=== PATIENT | female | born 1990 | race Hispanic/Latino ===

== ENCOUNTER 2020-10-15 18:43 | Emergency (ER) | payer OTHER ==
[2020-10-15 21:33] LABS: BUN Blood Urea Nitrogen 17 mg/dL (7-18); Bicarbonate 26 mmol/L (21-32); Glucose Level 90 mg/dL (74-106); Potassium 3.6 mmol/L (3.5-5.1); Sodium Level 140 mmol/L (136-145)
[2020-10-15 21:36] LABS: Absolute Lymphocytes (CBC) 1.9 K/uL (0.7-4.9); Hematocrit 36.1 % (36.0-45.0); Lymphocytes % 32.9 % (15.3-44.8); MPV 10.7 fL (7.6-11.3); RBC Red Blood Cell Count 3.94 M/uL (3.86-4.86)
--- NOTE | 2020-10-15 22:19 | EDPHYS ---
Physician Documentation [facility] Name: Harper Trevizo Age: 30 yrs Sex: Female : 1990 Arrival Date: 10/15/2020 Time: 18:44 Bed 13 Private MD: [facility] ED Physician Fernando Cerda HPI: 10/15 20:46 This 30 yrs old Female presents to ER via Ambulatory with complaints of Chest pkl Pressure. 20:46 The patient or guardian reports chest pain that is located primarily in the anterior pkl chest wall, bilaterally. The pain does not radiate. Associated signs and symptoms: The patient has no apparent associated signs or symptoms. The chest pain is described as a pressure. The patient has not experienced similar symptoms in the past. 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 - Social history:: Smoking status: Patient denies any tobacco usage or history of. ROS: 20:46 Eyes: Negative for injury, pain, redness, and discharge, ENT: Negative for injury, pkl pain, and discharge, Neck: Negative for injury, pain, and swelling. 20:46 Cardiovascular: Positive for chest pain. 20:46 Respiratory: Negative for cough, shortness of breath. 20:46 Abdomen/GI: Negative for abdominal pain, nausea, vomiting, and diarrhea. 20:46 Back: Negative for acute changes. 20:46 : Negative for urinary symptoms. 20:46 MS/extremity: Negative for acute changes. 20:46 Skin: Negative for rash. 20:46 Neuro: Negative for altered mental status. Exam: 20:46 Head/Face: Normocephalic, atraumatic. Eyes: Pupils equal round and reactive to light, pkl extra-ocular motions intact. Lids and lashes normal. Conjunctiva and sclera are non-icteric and not injected. Cornea within normal limits. Periorbital areas with no swelling, redness, or edema. ENT: Nares patent. No nasal discharge, no septal abnormalities noted. Tympanic membranes are normal and external auditory canals are clear. Oropharynx with no redness, swelling, or masses, exudates, or evidence of obstruction, uvula midline. Mucous membranes moist. Neck: Trachea midline, no thyromegaly or masses palpated, and no cervical lymphadenopathy. Supple, full range of motion without nuchal rigidity, or vertebral point tenderness. No Meningismus. Chest/axilla: Normal chest wall appearance and motion. Nontender with no deformity. No lesions are appreciated. Cardiovascular: Regular rate and rhythm with a normal S1 and S2. No gallops, murmurs, or rubs. Normal PMI, no JVD. No pulse deficits. Respiratory: Lungs have equal breath sounds bilaterally, clear to auscultation and percussion. No rales, rhonchi or wheezes noted. No increased work of breathing, no retractions or nasal flaring. Abdomen/GI: Soft, non-tender, with normal bowel sounds. No distension or tympany. No guarding or rebound. No evidence of tenderness throughout. Back: No spinal tenderness. No costovertebral tenderness. Full range of motion. Skin: Warm, dry with normal turgor. Normal color with no rashes, no lesions, and no evidence of cellulitis. MS/ Extremity: Pulses equal, no cyanosis. Neurovascular intact. Full, normal range of motion. Neuro: Awake and alert, GCS 15, oriented to person, place, time, and situation. Cranial nerves II-XII grossly intact. Motor strength 5/5 in all extremities. Sensory grossly intact. Cerebellar exam normal. Normal gait. Vital Signs: 20:21 BP 114 / 73; Pulse 75; Resp 19; Temp 98; Pulse Ox 100% ; rr5 20:21 Weight 54.43 kg; Height 5 ft. 1 in. (154.94 cm); Pain 4/10; rr5 21:30 BP 108 / 70; Pulse 79; Resp 17; Pulse Ox 98% ; rr5 22:30 BP 110 / 75; Pulse 70; Resp 16; Pulse Ox 99% ; rr5 20:21 Body Mass Index 22.67 (54.43 kg, 154.94 cm) rr5 MDM: 20:28 Patient medically screened. pkl 22:17 Data reviewed: vital signs, nurses notes, lab test result(s), EKG, radiologic studies, pkl plain films. 22:19 ED course: Discussed lab EKG and CXR results with patient. Advised to follow up with pkl PCP in 2 to 3 days. Patient understood instructions. 01/12 20:37 Order name: CBC with Diff; Complete Time: 22:16 pkl 10/15 20:37 Order name: Chem 7; Complete Time: 21:33 pkl 10/15 20:37 Order name: D-Dimer; Complete Time: 22:16 pkl 10/15 20:37 Order name: EKG; Complete Time: 20:38 pkl 10/15 20:37 Order name: XRAY CXR (1 view) pkl Administered Medications: No medications were administered Disposition: 10/15/20 22:18 Discharged to Home. Impression: Chest pain. - Condition is Stable. - Medication Reconciliation Form, Thank You Letter, Antibiotic Education, Prescription Opioid Use form. - Follow up: Juliano Garcia DO; When: 2 - 3 days; Reason: Re-evaluation by your physician. - Problem is new. - Symptoms have improved. Signatures: Dispatcher [employer] EDJuan Antonio Pappas RN RN sg Lam, Pin, MD MD pkLoki Santos RN RN rr5 Corrections: (The following items were deleted from the chart) 22:34 22:18 10/15/2020 22:18 Discharged to Home. Impression: Chest pain. Condition is Stable. rr5 Forms are Medication Reconciliation Form, Thank You Letter, Antibiotic Education, Prescription Opioid Use. Follow up: Juliano Garcia; When: 2 - 3 days; Reason: Re-evaluation by your physician. Problem is new. Symptoms have improved. pkl
--- NOTE | 2020-10-15 22:19 | ER ---
Nurse's Notes [facility] Name: Harper Trevizo Age: 30 yrs Sex: Female : 1990 Arrival Date: 10/15/2020 Time: 18:44 Bed 13 Private MD: Juliano Garcia Diagnosis: Chest pain Presentation: 10/15 20:21 Coronavirus screen: At this time, the client does not indicate any symptoms associated sg with coronavirus-19. Ebola Screen: Patient negative for fever greater than or equal to 101.5 degrees Fahrenheit, and additional compatible Ebola Virus Disease symptoms Patient denies exposure to infectious person. Patient denies travel to an Ebola-affected area in the 21 days before illness onset. No symptoms or risks identified at this time. Initial Sepsis Screen: Does the patient meet any 2 criteria? No. Patient's initial sepsis screen is negative. Does the patient have a suspected source of infection? No. Patient's initial sepsis screen is negative. Risk Assessment: Do you want to hurt yourself or someone else? Patient reports no desire to harm self or others. Onset of symptoms was October 15, 2020. Care prior to arrival: None. Transition of care: patient was not received from another setting of care. 20:21 Acuity: WIL 3 sg 20:21 Method Of Arrival: Ambulatory sg 20:21 Chief complaint: Patient states: I am having chest pressure not radiating started 4 rr5 days ago. Triage Assessment: 20:30 General: Appears in no apparent distress. comfortable, Behavior is calm, cooperative, rr5 appropriate for age. 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 - Social history:: Smoking status: Patient denies any tobacco usage or history of. Screenin:20 Abuse screen: Denies threats or abuse. Denies injuries from another. Nutritional rr5 screening: No deficits noted. Tuberculosis screening: No symptoms or risk factors identified. Fall Risk IV access (20 points). Total Gonzalez Fall Scale indicates No Risk (0-24 pts). Assessment: 20:30 General: Appears in no apparent distress. comfortable, Behavior is calm, cooperative, rr5 appropriate for age. 20:30 Pain: Complains of pain in chest Pain does not radiate. Pain currently is 5 out of 10 rr5 on a pain scale. Quality of pain is described as pressure, Pain began gradually, Is intermittent. Neuro: Level of Consciousness is awake, alert, obeys commands, Oriented to person, place, time, situation. Cardiovascular: Reports chest pain, Capillary refill < 3 seconds Patient's skin is warm and dry. Respiratory: Airway is patent Respiratory effort is even, unlabored, Respiratory pattern is regular, symmetrical. GI: No signs and/or symptoms were reported involving the gastrointestinal system. : No signs and/or symptoms were reported regarding the genitourinary system. EENT: No signs and/or symptoms were reported regarding the EENT system. Derm: Skin is intact, is healthy with good turgor, Skin temperature is warm. Musculoskeletal: Circulation, motion, and sensation intact. Capillary refill < 3 seconds. Vital Signs: 20:21 BP 114 / 73; Pulse 75; Resp 19; Temp 98; Pulse Ox 100% ; rr5 20:21 Weight 54.43 kg; Height 5 ft. 1 in. (154.94 cm); Pain 4/10; rr5 21:30 BP 108 / 70; Pulse 79; Resp 17; Pulse Ox 98% ; rr5 22:30 BP 110 / 75; Pulse 70; Resp 16; Pulse Ox 99% ; rr5 20:21 Body Mass Index 22.67 (54.43 kg, 154.94 cm) rr5 ED Course: 18:44 Patient arrived in ED. as 18:44 Juliano Garcia DO is Private Physician. as 20:21 Arm band placed on. sg 20:22 Triage completed. sg 20:22 Loki Almeida, RN is Primary Nurse. rr5 20:28 Fernando Cerda MD is Attending Physician. pkl 21:00 Patient has correct armband on for positive identification. 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 Pulse rr5 ox on. NIBP on. 21:10 No provider procedures requiring assistance completed. Inserted saline lock: 20 gauge rr5 in right forearm, using aseptic technique. Blood collected. Patient maintains SpO2 saturation greater than 95% on room air. 21:30 EKG done, by ED staff, reviewed by Fernando Cerda MD. rr5 21:33 XRAY CXR (1 view) In Process Unspecified. EDMS 22:18 Garcia, Juliano, DO is Referral Physician. pkl 22:30 IV discontinued, intact, bleeding controlled, No redness/swelling at site. Pressure rr5 dressing applied. Administered Medications: No medications were administered Outcome: 22:18 Discharge ordered by . pkl 22:30 Discharged to home ambulatory. rr5 22:30 Condition: stable 22:30 Discharge instructions given to patient, Instructed on discharge instructions, follow up and referral plans. Demonstrated understanding of instructions, follow-up care. 22:34 Patient left the ED. rr5 Signatures: Dispatcher [employer] EDDC Juan Antonio Alanis, RN RN Fernando Cooley MD MD pkl Martinez, Amelia as Roque, Raymond, RN RN rr5
[2020-10-15 22:38] VITALS: BP 114/73; TEMP 98; O2SAT 100
[2020-10-16] MEDS ORDERED: D50W 25 GM/50 ML SYRINGE IV ONE (04:08)
[2020-10-16] MEDS ORDERED: D50W 50 ML IV ONE (05:42)
--- NOTE | 2020-10-16 08:39 | RAD REPORT ---
EXAM DESCRIPTION: RAD - Chest Single View - 10/15/2020 9:33 pm CLINICAL HISTORY: CHEST PAIN Chest pain. COMPARISON: No comparisons FINDINGS: Portable technique limits examination quality. The lungs are grossly clear. The heart is normal in size. No displaced fractures. IMPRESSION: No acute intrathoracic process suspected.
--- NOTE | 2020-10-16 16:10 | EKG ---
Test Date: 2020-10-15 Test Time: 21:40:01 Superintendent Stations: RR MEASUREMENT RESULTS: Intervals: Rate: 70 SD: 138 QRSD: 80 QT: 388 QTc: 419 [place]: P: 49 SD: 138 QRS: 86 T: 54 INTERPRETIVE STATEMENTS: Normal sinus rhythm Normal ECG Compared to ECG 10/15/2020 21:39:34 No significant changes Electronically Signed On 10-16-20 16:08:40 FAMILY WELFARE SOCIAL WORK PROFESSOR by Alec Maza
== END 2020-10-15 22:34 | disposition home or self-care (01) ==
LOC: ER 18:43
DX: R07.89 Other chest pain (principal)
CPT/HCPCS: 36415; 71045; 80048; 85025; 85379; 93005; 99285

== ENCOUNTER 2021-03-18 10:04 | Emergency (ER) | payer OTHER ==
[2021-03-18 12:46] LABS: Absolute Lymphocytes (CBC) 1.1 K/uL (0.7-4.9); Basophils % 1.1 % (0-1.3); Hematocrit 35.2 % (36.0-45.0); Lymphocytes % 24.8 % (15.3-44.8); MPV 10.5 fL (7.6-11.3); RBC Red Blood Cell Count 3.74 M/uL (3.86-4.86)
[2021-03-18 12:47] LABS: Urine Blood Trace-intact (Negative); Urine Glucose Negative (Negative); Urine Protein 1+ (Negative); Urine Specific Gravity >=1.030 (1.005-1.030)
[2021-03-18 12:51] LABS: Urine Specific Gravity/Preg >1.030 (1.005-1.030)
[2021-03-18 12:54] LABS: Barbiturates NEGATIVE (NEGATIVE); Benzodiazepines NEGATIVE (NEGATIVE); Cocaine NEGATIVE (NEGATIVE); METHAMPHETAM NEGATIVE (NEGATIVE); Methadone NEGATIVE (NEGATIVE); Opiates NEGATIVE (NEGATIVE); Phencyclidine NEGATIVE (NEGATIVE); THC Cannibis NEGATIVE (NEGATIVE)
[2021-03-18 12:56] LABS: Protime INR 1.1
[2021-03-18 13:06] LABS: ALT/SGPT 18 U/L (12-78); AST/SGOT 17 U/L (15-37); Albumin 4.4 g/dL (3.4-5.0); Alkaline Phosphatase 55 U/L (45-117); BUN Blood Urea Nitrogen 12 mg/dL (7-18); Bicarbonate 25 mmol/L (21-32); Bilirubin Direct 0.2 mg/dL (0-0.2); Bilirubin Total 0.6 mg/dL (0.2-1.0); Creatine Phosphokinase 90 U/L (26-192); Glucose Level 82 mg/dL (74-106); NT PRO-BNP 106 pg/mL (<125); Potassium 3.4 mmol/L (3.5-5.1); Protein, Total 7.7 g/dL (6.4-8.2); Sodium Level 143 mmol/L (136-145); Troponin (Emerg Dept Use Only) < 0.02 ng/mL (0.0-0.045)
[2021-03-18] MEDS ORDERED: NA CHLORIDE 0.9% 1,000 ML ONE (13:29)
--- NOTE | 2021-03-18 15:07 | ER ---
Nurse's Notes [facility] Name: Harper Trevizo Age: 30 yrs Sex: Female : 1990 Arrival Date: 03/18/2021 Time: 10:06 Bed 23 Private MD: Diagnosis: Syncope and collapse;Palpitations Presentation: 03/18 10:15 Chief complaint: Patient states: "Yesterday I went for a run then took my kids and dog jd3 to the park and when I got home I felt my heart racing and I got nauseous. last week I have been working out and I forgot to take my pre-workout so I took some of my friends weight loss energy pills and I don't think it was that, but I just want to see what is going wrong.". Coronavirus screen: At this time, the client does not indicate any symptoms associated with coronavirus-19. Ebola Screen: Patient negative for fever greater than or equal to 101.5 degrees Fahrenheit, and additional compatible Ebola Virus Disease symptoms. Initial Sepsis Screen: Does the patient meet any 2 criteria? No. Patient's initial sepsis screen is negative. Does the patient have a suspected source of infection? No. Patient's initial sepsis screen is negative. Risk Assessment: Do you want to hurt yourself or someone else? Patient reports no desire to harm self or others. Onset of symptoms was March 17, 2021. 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 - Social history:: Smoking status: Patient denies any tobacco usage or history of. Screenin:06 Abuse screen: Denies threats or abuse. Nutritional screening: No deficits noted. kg Tuberculosis screening: No symptoms or risk factors identified. Fall Risk None identified. Assessment: 12:05 Reassessment: provider at bedside at this time. kg 12:15 General: Appears in no apparent distress. comfortable, Behavior is calm, cooperative, kg appropriate for age, quiet. Pain: Denies pain. Neuro: No deficits noted. Level of Consciousness is awake, alert, obeys commands, Oriented to person, place, time, situation, Appropriate for age. Cardiovascular: Reports nausea, palpitations, Heart tones S1 S2 Pulses are 2+ in right radial artery and left radial artery Rhythm is regular. Respiratory: No deficits noted. Airway is patent Trachea midline Respiratory effort is even, unlabored, relaxed, Respiratory pattern is regular, Breath sounds are clear bilaterally. GI: No deficits noted. : No deficits noted. EENT: No signs and/or symptoms were reported regarding the EENT system. Derm: No deficits noted. 13:45 Reassessment: Patient states feeling better. Patient states symptoms have improved. kg 14:29 Reassessment: Provider at bedside. kg Vital Signs: 10:18 BP 139 / 75; Pulse 96; Resp 16 S; Temp 98.6(TE); Pulse Ox 99% on R/A; Weight 54.43 kg jd3 (R); Height 5 ft. 1 in. (154.94 cm) (R); Pain 8/10; 12:15 BP 108 / 52; Pulse 81; Resp 16; Pulse Ox 100% ; kg 12:45 BP 113 / 63; Pulse 64; Resp 16; Pulse Ox 100% on R/A; kg 13:15 BP 113 / 65; Pulse 61; Resp 17; Pulse Ox 100% on R/A; kg 13:45 BP 107 / 65; Pulse 59; Resp 18; Pulse Ox 100% ; kg 14:15 BP 108 / 62; Pulse 56; Resp 18; Pulse Ox 100% on R/A; kg 15:15 BP 105 / 64; Pulse 56; Resp 20; Pulse Ox 100% on R/A; kg 10:18 Body Mass Index 22.67 (54.43 kg, 154.94 cm) jd3 ED Course: 10:06 Patient arrived in ED. rg4 10:18 Triage completed. jd3 10:19 Arm band placed on. jd3 11:54 Dewey Montgomery PA is PHCP. jmm 11:54 Ramana Rosario MD is Attending Physician. jmm 12:05 Alma Rosa Lara, MAURICIO is Primary Nurse. kg 12:06 Bed in low position. Call light in reach. monitor and storage bin tender on. Pulse ox on. NIBP on. kg 13:06 Initial lab(s) drawn, by me, sent to lab. Inserted saline lock: 22 gauge in left em1 antecubital area, using aseptic technique. Blood collected. 13:28 Basic Metabolic Panel Sent. kg 13:28 CBC with Diff Sent. kg 13:28 LFT's Sent. kg 13:28 Magnesium Sent. kg 13:28 NT PRO-BNP Sent. kg 15:06 Nixon Warren MD is Referral Physician. junior 15:23 No provider procedures requiring assistance completed. IV discontinued, intact, kg bleeding controlled, No redness/swelling at site. Pressure dressing applied. Administered Medications: 13:15 Drug: NS 0.9% 1000 ml Route: IV; Rate: 1 bolus; Site: left antecubital; kg 14:26 Follow up: Response: No adverse reaction; Marked relief of symptoms; IV Status: kg Completed infusion; IV Intake: 1000ml Intake: 14:26 IV: 1000ml; Total: 1000ml. kg Outcome: 15:06 Discharge ordered by . lolis 15:32 Discharged to home ambulatory. kg 15:32 Condition: improved 15:32 Discharge instructions given to patient, Instructed on discharge instructions, follow up and referral plans. Demonstrated understanding of instructions, follow-up care. 15:32 Patient left the ED. kg Signatures: Dewey Montgomery PA PA jmm Martinez, Eric em1 Tri Subramanian rg4 Juaquin Hansen RN RN jd3 Alma Rosa Lara RN RN kg
--- NOTE | 2021-03-18 15:07 | EDPHYS ---
Physician Documentation [facility] Name: Harper Trevizo Age: 30 yrs Sex: Female : 1990 Arrival Date: 03/18/2021 Time: 10:06 Bed 23 Private MD: ED Physician Ramana Rosario HPI: 03/18 11:59 This 30 yrs old Female presents to ER via Ambulatory with complaints of jmm Dizziness, Palpitations. 11:59 The patient has experienced near-syncope. Onset: The symptoms/episode began/occurred jmm acutely, 1 day(s) ago. Duration: The patient has had multiple episodes. Associated injury: The patient did not suffer any apparent associated injury. This is a 30 year old female with no known chronic medical conditions that presents to the ED with complaints of near syncope, palpitations beginning approx 3 days ago. Patient states she took a friends diet pill once daily for 3 days, discontinued for 2 but symptoms continue. . 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 - Social history:: Smoking status: Patient denies any tobacco usage or history of. ROS: 11:59 Constitutional: Negative for fever, chills, and weight loss, Respiratory: Negative for jmm shortness of breath, cough, wheezing, and pleuritic chest pain. 11:59 Cardiovascular: Positive for palpitations. 11:59 All other systems are negative. Exam: 11:59 Constitutional: This is a well developed, well nourished patient who is awake, alert, jmm and in no acute distress. Head/Face: atraumatic. Eyes: EOMI, no conjunctival erythema appreciated ENT: Moist Mucus Membranes Neck: Trachea midline, Supple Chest/axilla: Normal chest wall appearance and motion. Cardiovascular: Regular rate and rhythm. No edema appreciated Respiratory: Normal respirations, no respiratory distress appreciated Abdomen/GI: Non distended, soft Back: Normal ROM Skin: General appearance color normal MS/ Extremity: Moves all extremities, no obvious deformities appreciated, no edema noted to the lower extremities Neuro: Awake and alert, normal gait Psych: Behavior is normal, Mood is normal, Patient is cooperative and pleasant Vital Signs: 10:18 BP 139 / 75; Pulse 96; Resp 16 S; Temp 98.6(TE); Pulse Ox 99% on R/A; Weight 54.43 kg jd3 (R); Height 5 ft. 1 in. (154.94 cm) (R); Pain 8/10; 12:15 BP 108 / 52; Pulse 81; Resp 16; Pulse Ox 100% ; kg 12:45 BP 113 / 63; Pulse 64; Resp 16; Pulse Ox 100% on R/A; kg 13:15 BP 113 / 65; Pulse 61; Resp 17; Pulse Ox 100% on R/A; kg 13:45 BP 107 / 65; Pulse 59; Resp 18; Pulse Ox 100% ; kg 14:15 BP 108 / 62; Pulse 56; Resp 18; Pulse Ox 100% on R/A; kg 15:15 BP 105 / 64; Pulse 56; Resp 20; Pulse Ox 100% on R/A; kg 10:18 Body Mass Index 22.67 (54.43 kg, 154.94 cm) jd3 MDM: 11:59 Patient medically screened. misty 15:05 Data reviewed: vital signs, nurses notes. Counseling: I had a detailed discussion with junior the patient and/or guardian regarding: the historical points, exam findings, and any diagnostic results supporting the discharge/admit diagnosis, lab results, the need for outpatient follow up, to return to the emergency department if symptoms worsen or persist or if there are any questions or concerns that arise at home. ED course: patient is alert and non toxic in appearance in the ED. Advised of the need to follow up with cardiology for further evaluation. Patient is otherwise given strict return precautions. patient understood and agrees with the plan of care. . 03/18 12:10 Order name: Basic Metabolic Panel [facility] 03/18 12:10 Order name: CBC with Diff [facility] 03/18 12:10 Order name: LFT's [facility] 03/18 12:10 Order name: Magnesium [facility] 03/18 12:10 Order name: NT PRO-BNP [facility] 03/18 12:10 Order name: PT-INR; Complete Time: 13:03 [facility] 03/18 12:10 Order name: Troponin (emerg Dept Use Only); Complete Time: 13:18 [facility] 03/18 12:10 Order name: CPK; Complete Time: 13:18 [facility] 03/18 12:10 Order name: Urine Drug Screen; Complete Time: 13:03 [facility] 03/18 12:10 Order name: Basic Metabolic Panel; Complete Time: 13:18 [facility] 03/18 12:10 Order name: CBC with Automated Diff; Complete Time: 13:03 [facility] 03/18 12:10 Order name: Liver (Hepatic) Function; Complete Time: 13:18 [facility] 03/18 12:10 Order name: Magnesium; Complete Time: 13:18 [facility] 03/18 12:10 Order name: NT PRO-BNP; Complete Time: 13:18 [facility] 03/18 12:10 Order name: EKG; Complete Time: 12:10 [facility] 03/18 12:10 Order name: Cardiac monitoring; Complete Time: 12:26 [facility] 03/18 12:10 Order name: EKG - Nurse/Tech; Complete Time: 12:20 [facility] 03/18 12:10 Order name: IV Saline Lock; Complete Time: 13: [facility] 03/18 12:10 Order name: Labs collected and sent; Complete Time: 13:06 [facility] 03/18 12:10 Order name: O2 Per Protocol; Complete Time: 12:26 [facility] 03/18 12:10 Order name: O2 Sat Monitoring; Complete Time: 12:26 [facility] 03/18 12:10 Order name: Urine Dipstick-Ancillary (obtain specimen); Complete Time: 13:28 [facility] 03/18 12:10 Order name: Urine Test (obtain specimen); Complete Time: 13:28 [facility] 03/18 12:46 Order name: Urine Dipstick-Ancillary; Complete Time: 13:03 [facility] 03/18 12:46 Order name: Urine --Ancillary (enter results); Complete Time: 13:03 mt Administered Medications: 13:15 Drug: NS 0.9% 1000 ml Route: IV; Rate: 1 bolus; Site: left antecubital; kg 14:26 Follow up: Response: No adverse reaction; Marked relief of symptoms; IV Status: kg Completed infusion; IV Intake: 1000ml Disposition: 03/19 08:02 Co-signature as Attending Physician, Ramana DUARTE I agree with the assessment and misty plan of care. Disposition: 03/18/21 15:06 Discharged to Home. Impression: Syncope and collapse, Palpitations. - Condition is Stable. - Discharge Instructions: Near-Syncope, Palpitations, Syncope. - Medication Reconciliation Form, Thank You Letter, Antibiotic Education, Prescription Opioid Use, Work release form form. - Follow up: Nixon Warren MD; When: 2 - 3 days; Reason: Recheck today's complaints, Continuance of care, Re-evaluation by your physician. Signatures: Dispatcher [employer] EDRamana Garcia MD MD cha Mickail, Joel, PA PA jmm Davies, Jonathon RN RN jAlma Rosa Joseph RN RN kg Corrections: (The following items were deleted from the chart) 03/18 15:32 15:06 03/18/2021 15:06 Discharged to Home. Impression: Syncope and collapse; kg Palpitations. Condition is Stable. Forms are Work release form, Medication Reconciliation Form, Thank You Letter, Antibiotic Education, Prescription Opioid Use. Follow up: Nixon Warren; When: 2 - 3 days; Reason: Recheck today's complaints, Continuance of care, Re-evaluation by your physician. junior
[2021-03-18 15:54] VITALS: TEMP 98.6
[2021-03-18 15:56] VITALS: O2SAT 100
[2021-03-18 16:05] VITALS: BP 105/64
--- NOTE | 2021-03-19 07:39 | EKG ---
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
== END 2021-03-18 15:32 | disposition home or self-care (01) ==
LOC: ER 10:04
DX: R00.2 Palpitations (principal)
CPT/HCPCS: 93005; 85025; 80048; 36415; 83735; 82550; 81025; 85610; 80076; 80307 ×8; 81003; 84484; 83880; 96360; 99284; J7030

== ENCOUNTER 2021-07-04 16:16 | Emergency (ER) | payer OTHER ==
--- NOTE | 2021-07-04 18:12 | RAD REPORT ---
EXAM DESCRIPTION: CT - Head Brain Wo Cont - 07/04/2021 6:07 pm CLINICAL HISTORY: Headache;Weakness Headache, drowsiness COMPARISON: No comparisons TECHNIQUE: All CT scans are performed using dose optimization technique as appropriate and may inclu de automated exposure control or mA/KV adjustment according to patient size. FINDINGS: No intracranial hemorrhage, hydrocephalus or extra-axial fluid collection.No areas of brai n edema or evidence of midline shift. The paranasal sinuses and mastoids are clear. The calvarium is intact. IMPRESSION: No acute intracranial abnormality.
[2021-07-04] MEDS ORDERED: METOCLOPRAMIDE 10 MG/2mL INJ ONE (18:27)
[2021-07-04] MEDS ORDERED: dexAMETHasone 10 MG/ML VIAL ONE (18:28)
[2021-07-04] MEDS ORDERED: NA CHLORIDE 0.9% 1,000 ML ONE (18:28)
--- NOTE | 2021-07-04 18:45 | ER ---
Nurse's Notes [facility] Name: Harper Trevizo Age: 30 yrs Sex: Female : 1990 Arrival Date: 07/04/2021 Time: 16:20 Bed 23 Private MD: Diagnosis: Migraine without aura, not intractable Presentation: 07/04 16:29 Chief complaint: Patient states: R sided VILCHIS for [address] Garcia's PA yesterday. ll1 Given anti inflammatory shot, and Imitrex. Imitrex helped a lot, but the pain is still there. Noticed her R arm felt weak at 10 am today while working out. Gait steady. No trouble walking or talking. Coronavirus screen: Vaccine status: Patient reports receiving the 2nd dose of the covid vaccine. Client denies travel out of the [place] in the last 14 days. At this time, the client does not indicate any symptoms associated with coronavirus-19. Ebola Screen: Patient denies travel to an Ebola-affected area in the 21 days before illness onset. Initial Sepsis Screen: Does the patient meet any 2 criteria? HR > 90 bpm. No. Patient's initial sepsis screen is negative. Does the patient have a suspected source of infection? Yes: Other: VILCHIS. Risk Assessment: Do you want to hurt yourself or someone else? Patient reports no desire to harm self or others. Onset of symptoms was June 27, 2021. 16:29 Method Of Arrival: Ambulatory ll1 16:29 Acuity: WIL 3 ll1 Triage Assessment: 18:10 Headache History: The patient has had previous headaches. oh 18:10 General: Appears in no apparent distress. Behavior is calm, cooperative, appropriate oh for age. 18:10 Pain: Also complains of. oh 18:28 Pain: Pain currently is 7 out of 10 on a pain scale. Pain began 1 week. 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 - Social history:: Smoking status: Patient denies any tobacco usage or history of. - Family history:: not pertinent. - Hospitalizations: : No recent hospitalization is reported. Screenin:09 Abuse screen: Denies threats or abuse. Nutritional screening: No deficits noted. oh Tuberculosis screening: No symptoms or risk factors identified. Fall Risk None identified. Assessment: 18:08 Pain: Complains of pain in headache, jaw pain. Neuro: Reports headache in right hx oh migraines. 18:27 Neuro: Reports headache in right lasting longer than usual. oh 19:29 Reassessment: Pt resting on phone, denies headache. Waiting for fluids to finish before dc2 going home. VSS. Vital Signs: 16:29 BP 134 / 70; Pulse 93; Resp 17; Temp 98.3; Pulse Ox 100% ; Weight 54.43 kg; Height 5 ll1 ft. 1 in. (154.94 cm); Pain 5/10; 19:10 BP 102 / 41; Pulse 77; Resp 17; Temp 98.7; Pulse Ox 100% ; Pain 0/10; dc2 16:29 Body Mass Index 22.67 (54.43 kg, 154.94 cm) ll1 Cincinnatus Coma Score: 18:39 Eye Response: spontaneous(4). Verbal Response: oriented(5). Motor Response: obeys rn commands(6). Total: 15. ED Course: 16:20 Patient arrived in ED. as 16:33 Triage completed. ll1 16:33 Arm band placed on. ll1 17:39 Christopher Fernando MD is Attending Physician. rn 17:45 Dusty Romero RN is Primary Nurse. oh 18:06 CT Head Brain wo Cont In Process Unspecified. EDMS 18:09 Bed in low position. Call light in reach. oh 18:27 Inserted saline lock: 22 gauge in right wrist, using aseptic technique. oh 18:44 Vaibhav Tovar MD is Referral Physician. rn Administered Medications: 18:26 Drug: Reglan (metoCLOPramide) 10 mg Route: IVP; Site: left wrist; oh 18:26 Drug: Decadron - Dexamethasone 10 mg Route: IVP; Site: left wrist; oh 18:26 Drug: NS 0.9% 1000 ml Route: IV; Rate: 1000 ml; Site: left wrist; oh Outcome: 18:45 Discharge ordered by . rn 19:58 Patient left the ED. bb Signatures: Dispatcher [employer] Priyanka Pierre Brenda, RN RN bb Christopher Fernando MD MD rn Lewis, Lynsay, RN RN ll1 Michelle Daily RN RN dc2 Dusty Romero RN RN oh
--- NOTE | 2021-07-04 18:45 | EDPHYS ---
Physician Documentation [facility] Name: Harper Trevizo Age: 30 yrs Sex: Female : 1990 Arrival Date: 07/04/2021 Time: 16:20 Bed 23 Private MD: ED Physician Christopher Fernando HPI: 07/04 18:38 This 30 yrs old Female presents to ER via Ambulatory with complaints of rn Headache. 18:38 The patient complains of pain to the top of head, right side of the back of head, right rn temporal area and right occipital area. The patient describes the headache as aching. 18:39 Onset: The symptoms/episode began/occurred 1 week(s) ago. Associated signs and rn symptoms: Pertinent positives: nausea, Pertinent negatives: altered mental status, fever, neck stiffness, rash, vision changes, vision loss, vertigo. Severity of symptoms: At its worst the pain was moderate, "similar to past headaches", in the emergency department the pain is unchanged. The symptoms are alleviated by nothing. the symptoms are aggravated by nothing. The patient has experienced similar episodes in the past. The patient has been recently seen by a physician:. Patient reports 1 week of headache, seen by PCP and prescribed sumatriptan, some improvement but has not resolved. States has a history of migraines but this 1 lasting longer than normal. Denies fever. Denies trauma. Reports right arm today while at gym felt a little numb but otherwise no focal neurological findings. Denies any vision loss or changes.. 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 - Social history:: Smoking status: Patient denies any tobacco usage or history of. - Family history:: not pertinent. - Hospitalizations: : No recent hospitalization is reported. ROS: 18:39 Constitutional: Negative for fever, chills, and weight loss, Eyes: Negative for injury, rn pain, redness, and discharge, ENT: Negative for injury, pain, and discharge, Neck: Negative for injury, pain, and swelling, Cardiovascular: Negative for chest pain, palpitations, and edema, Respiratory: Negative for shortness of breath, cough, wheezing, and pleuritic chest pain, Abdomen/GI: Negative for abdominal pain, vomiting, diarrhea, and constipation, Back: Negative for injury and pain, : Negative for injury, bleeding, discharge, and swelling, MS/Extremity: Negative for injury and deformity, Skin: Negative for injury, rash, and discoloration, Neuro: Negative for seizure Exam: 18:39 Constitutional: This is a well developed, well nourished patient who is awake, alert, rn and in no acute distress. Sitting upright and using phone Head/Face: Normocephalic, atraumatic. Eyes: Pupils equal round and reactive to light, extra-ocular motions intact. Lids and lashes normal. Conjunctiva and sclera are non-icteric and not injected. Cornea within normal limits. Periorbital areas with no swelling, redness, or edema. Neck: Supple, full range of motion without nuchal rigidity, or vertebral point tenderness. No Meningismus. Cardiovascular: Regular rate and rhythm. No pulse deficits. Respiratory: No increased work of breathing, no retractions or nasal flaring. Skin: Warm, dry MS/ Extremity: Pulses equal, no cyanosis Neuro: Awake and alert, GCS 15, oriented to person, place, time, and situation. Cranial nerves II-XII grossly intact. Motor strength 5/5 in all extremities. Sensory grossly intact. Cerebellar exam normal. Vital Signs: 16:29 BP 134 / 70; Pulse 93; Resp 17; Temp 98.3; Pulse Ox 100% ; Weight 54.43 kg; Height 5 ll1 ft. 1 in. (154.94 cm); Pain 5/10; 19:10 BP 102 / 41; Pulse 77; Resp 17; Temp 98.7; Pulse Ox 100% ; Pain 0/10; dc2 16:29 Body Mass Index 22.67 (54.43 kg, 154.94 cm) ll1 George Coma Score: 18:39 Eye Response: spontaneous(4). Verbal Response: oriented(5). Motor Response: obeys rn commands(6). Total: 15. MDM: 17:39 Patient medically screened. rn 18:39 Differential diagnosis: hypertensive headache, migraine, tension headache, vasomotor rn headache, Complicated migraine, ocular migraine. Data reviewed: vital signs, nurses notes, radiologic studies, CT scan, and as a result, I will discharge patient. Counseling: I had a detailed discussion with the patient and/or guardian regarding: the historical points, exam findings, and any diagnostic results supporting the discharge/admit diagnosis, radiology results, the need for outpatient follow up, to return to the emergency department if symptoms worsen or persist or if there are any questions or concerns that arise at home. Response to treatment: the patient's symptoms have markedly improved after treatment, and as a result, I will discharge patient. Special discussion: I discussed with the patient/guardian in detail that at this point there is no indication for admission to the hospital. It is understood, however, that if the symptoms persist or worsen the patient needs to return immediately for re-evaluation. Based on the history and exam findings, there is no indication for further emergent testing or inpatient evaluation. I discussed with the patient/guardian the need to see the neurologist for further evaluation of the symptoms. 07/04 17:39 Order name: CT Head Brain wo Cont; Complete Time: 18:15 rn 07/04 17:45 Order name: IV Start; Complete Time: 18:26 rn Administered Medications: 18:26 Drug: Reglan (metoCLOPramide) 10 mg Route: IVP; Site: left wrist; oh 18:26 Drug: Decadron - Dexamethasone 10 mg Route: IVP; Site: left wrist; oh 18:26 Drug: NS 0.9% 1000 ml Route: IV; Rate: 1000 ml; Site: left wrist; oh Disposition Summary: 07/04/21 18:45 Discharge Ordered Location: Home rn Problem: new rn Symptoms: have improved rn Condition: Stable rn Diagnosis - Migraine without aura, not intractable rn Followup: rn - With: Vaibhav Tovar MD - When: As needed - Reason: Recheck today's complaints, Re-evaluation by your physician Discharge Instructions: - Discharge Summary Sheet rn - Migraine Headache rn Forms: - Medication Reconciliation Form rn - Thank You Letter rn - Antibiotic director internal audit - Prescription Opioid Use rn Signatures: Dispatcher [employer] Christopher Rdz MD MD rn Lewis, Lynsay, RN RN ll1 Dusty Romero RN RN oh
[2021-07-04 20:22] VITALS: O2SAT 100
[2021-07-04 20:23] VITALS: BP 102/41; TEMP 98.7
== END 2021-07-04 19:58 | disposition home or self-care (01) ==
LOC: ER 16:16
DX: G43.009 Migraine without aura, not intractable, without status migrainosus (principal)
CPT/HCPCS: 70450; 96375; 96374; 99283; J2765; J1100; J7030